=== PATIENT | female | born 1970 ===

== ENCOUNTER 2018-04-29 08:50 | Emergency (ER) | payer OTHER ==
[2018-04-29 08:56] VITALS: BMI 29.2
[2018-04-29] MEDS ORDERED: DiphenhydrAMINE 50 mg/ml Inj IV STA (09:35)
--- NOTE | 2018-04-29 09:44 | ED PDOC ---
HPI: Allergic Reaction Time Seen by Provider: 04/29/18 09:06 Chief Complaint (Nursing): Allergic Reaction Chief Complaint (Provider): swollen lip History Per: Patient History/Exam Limitations: no limitations Onset/Duration Of Symptoms: Days (2 days), Intermittent Episodes Possible Cause: Unknown Associated Symptoms: Skin Rash. denies: Swelling, Dyspnea, Trouble Swallowing, Dizziness, Itching, Redness, Chest Pain Home/EMS Treatment: Benadryl (earlier overnight) Severity: Moderate Additional Complaint(s): 47yo female denies medical history presents c/o swelling to upper lip since yesterday also notes scattered intermittment rash to chest/ under breasts and legs, arms over last 2 months. Unknown triggers. Denies taking any Rx medications. No ACEI blood pressure medications. Denies throat swelling, tongue swelling, difficulty swallowing, dizziness or SOB/ cough/ wheeze. Past Medical History Reviewed: Historical Data, Nursing Documentation, Vital Signs Vital Signs: Last Vital Signs Temp 98 F 04/29/18 08:55 Pulse 81 04/29/18 08:55 Resp BP 137/71 04/29/18 08:55 Pulse Ox 98 04/29/18 08:55 - Medical History PMH: No Chronic Diseases - Family History Family History: States: Unknown Family Hx - Living Arrangements Living Arrangements: With Family - Immunization History Hx Tetanus Toxoid Vaccination: No Hx Influenza Vaccination: No Hx Pneumococcal Vaccination: No - Home Medications Home Medications: Ambulatory Orders Medication Instructions Recorded DiphenhydrAMINE [Benadryl] 25 mg PO Q4 PRN #12 cap 04/29/18 Prednisone 50 mg PO DAILY #4 tab 04/29/18 - Allergies Allergies/Adverse Reactions: Allergies Allergy/AdvReac Type Severity Reaction Status Date / Time No Known Allergies Allergy Verified 04/29/18 09:30 Review of Systems Constitutional: Negative for: Fever, Chills, Malaise Eyes: Negative for: Vision Change, Eyelid Inflammation ENT: Positive for: Throat Swelling, Other (+lip swelling). Negative for: Mouth Swelling, Throat Pain Cardiovascular: Negative for: Chest Pain, Palpitations Respiratory: Negative for: Cough, Shortness of Breath Gastrointestinal: Negative for: Abdominal Pain Genitourinary Female: Negative for: Dysuria Musculoskeletal: Negative for: Neck Pain Skin: Positive for: Rash. Negative for: Lesions, Jaundice Neurological: Negative for: Weakness, Numbness Psych: Negative for: Depression Physical Exam - Reviewed Nursing Documentation Reviewed: Yes Vital Signs Reviewed: Yes - Physical Exam Appears: Positive for: Well, Non-toxic, No Acute Distress Head Exam: Positive for: ATRAUMATIC, NORMAL INSPECTION, NORMOCEPHALIC Skin: Positive for: Normal Color, Warm. Negative for: Rash (rash resolved to trunk/under breasts) Eye Exam: Positive for: EOMI, Normal appearance, PERRL ENT: Positive for: Normal ENT Inspection, Other (localized upper lip edema, normal oropharynx, normal tongue and voice, no stridor) Neck: Positive for: Normal, Painless ROM, Supple (no stridor) Cardiovascular/Chest: Positive for: Regular Rate, Rhythm Respiratory: Positive for: Normal Breath Sounds. Negative for: Wheezing, Respiratory Distress Pulses-Radial (L): 2+ Pulses-Radial (R): 2+ Gastrointestinal/Abdominal: Positive for: Soft. Negative for: Tenderness, Guarding Back: Positive for: Normal Inspection Extremity: Positive for: Normal ROM Neurologic/Psych: Positive for: Alert, Oriented - Laboratory Results Result Diagrams: 04/29/18 09:40 04/29/18 09:40 - ECG O2 Sat by Pulse Oximetry: 98 Pulse Ox Interpretation: Normal - Progress ED Course And Treament: obtain basic labs benadryl and solumedrol initiated unknown triggers, likely to require workup for angioedema/rash as outpatient labwork reviewed, mild hypokalemia, K+ replaced orally Monitored in ED 5+ hours w improvement of symptoms. Oropharynx remains patent without change in voice or swallowing. DC from ED to followup proc tech for definitive testing. Rx prednisone and benadryl and indications for return to ER discussed. Disposition - Clinical Impression Clinical Impression: Angioedema - Patient ED Disposition Is Patient to be Admitted: No Counseled Patient/Family Regarding: Studies Performed, Diagnosis, Need For Followup, Rx Given - Disposition Referrals: Jesse Henderson MD [Staff Provider] - Disposition: Routine/Home Disposition Time: 14:40 Condition: STABLE Additional Instructions: Followup with proc tech for further testing. Return to ER immediately for any worse or new symptoms. Take medications as directed. Prescriptions: DiphenhydrAMINE [Benadryl] 25 mg PO Q4 PRN #12 cap PRN Reason: Allergy Symptoms Prednisone 50 mg PO DAILY #4 tab Instructions: Allergy Testing, Angioedema (DC) Forms: [facility] (Greek)
[2018-04-29] MEDS ORDERED: DiphenhydrAMINE 50 mg/ml Inj ONE (09:51)
[2018-04-29 10:26] LABS: BASO % 0.4 % (0.0-2.0); EOS # 0.3 K/uL (0.0-0.7); EOS % 3.5 % (0.0-4.0); HEMOGLOBIN 13.8 g/dL (12.0-16.0); LYMPH # 1.5 K/uL (1.0-4.3); LYMPH % 21.3 % (20.0-40.0); MEAN CELL VOLUME 81.4 fl (81.0-99.0); MEAN CORPUSCULAR HEMOGLOBIN 27.3 pg (27.0-31.0); MEAN CORPUSCULAR HGB CONC 33.6 g/dL (33.0-37.0); MEAN PLATELET VOLUME 8.1 fl (7.2-11.7); MONO # 0.5 K/uL (0.0-0.8); MONO % 6.5 % (0.0-10.0); NEUT % 68.3 % (50.0-75.0); NRBC % 0.1 % (0.0-0.0); RBC 5.04 Mil/uL (3.80-5.20); RED CELL DISTRIBUTION WIDTH 16.1 % (11.5-14.5); WHITE BLOOD COUNT 7.3 K/uL (4.8-10.8)
[2018-04-29 10:32] LABS: ALB/GLOB RATIO 1.4 (1.0-2.1); ALBUMIN 4.2 g/dL (3.5-5.0); ALT/SGPT 47 U/L (9-52); AST/SGOT 34 U/L (14-36); BLOOD UREA NITROGEN 12 mg/dl (7-17); CALCIUM 8.9 mg/dL (8.4-10.2); GFR AFRICAN-AMERICAN > 60; GFR NON-AFRICAN AMERICAN > 60
[2018-04-29] MEDS ORDERED: Potassium Chloride 20 mEq ER Tab PO ONE ×2 (11:18→13:41)
[2018-04-29 13:49] VITALS: BP 116/70; PULSE 70
[2018-04-29 15:11] VITALS: O2SAT 98
[2018-04-29 15:22] VITALS: RESP 17; TEMP 98.4
== END 2018-04-29 15:10 | disposition home or self-care (01) ==
LOC: H.ER 08:50
DX: T78.3XXA Angioneurotic edema, initial encounter (principal)
CPT/HCPCS: 80053; 81025; 85025; 96374; 99283; J1200; J2930

== ENCOUNTER 2019-01-17 19:23 | Emergency (ER) | payer OTHER ==
[2019-01-17 19:23] VITALS: BMI 29.2
[2019-01-17 19:28] VITALS: RESP 16
[2019-01-17] MEDS ORDERED: Naproxen 500 MG TAB PO ONE ×2 (21:07→22:28)
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
[2019-01-18 01:10] VITALS: BP 136/80; PULSE 82; TEMP 98.2; O2SAT 99
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
== END 2019-01-17 23:20 | disposition home or self-care (01) ==
LOC: H.ER 19:23
DX: S93.402A Sprain of unspecified ligament of left ankle, initial encounter (principal); S16.1XXA Strain of muscle, fascia and tendon at neck level, initial encounter; V43.52XA Car driver injured in collision with other type car in traffic accident, initial encounter; Y92.410 Unspecified street and highway as the place of occurrence of the external cause